=== PATIENT | male | born 1975 | race Caucasian/White ===

== ENCOUNTER 2016-10-11 17:45 | Emergency (ER) | payer OTHER ==
[~2016-10-11] VITALS: Ht 185.4 cm; Wt 68.9 kg
[~2016-10-11 17:45] MED LIST: DIAMOX500 MG IV; EYE DROPS; NOHOMEMEDS; NORCO 5/3251 TABLET PO; PHENERGAN12.5 M1 PO; [UNRECOGNIZED DRUG - OTHER]
[2016-10-11] MEDS ORDERED: NORCO 5/3251 TABLET PO (19:51)
[2016-10-11 19:58] VITALS: BP 125/74
== END 2016-10-11 20:01 | disposition home or self-care (01) ==
LOC: EME 17:45
DX: S06.0X0A Concussion without loss of consciousness, initial encounter (principal); W19.XXXA Unspecified fall, initial encounter; Y93.68 Activity, volleyball (beach) (court); H40.9 Unspecified glaucoma; H91.92 Unspecified hearing loss, left ear; Z97.4 Presence of external hearing-aid; F17.200 Nicotine dependence, unspecified, uncomplicated
CPT/HCPCS: 70450; 99281; 99283

== ENCOUNTER 2016-12-08 10:52 | Emergency (ER) | payer OTHER ==
[~2016-12-08] VITALS: Ht 193 cm; Wt 69.2 kg
[2016-12-08] MEDS ORDERED: ROBAXIN500 MG PO (13:48)
[2016-12-08] MEDS ORDERED: MOTRIN600 MG PO (13:48)
[2016-12-08 13:53] VITALS: BP 132/77
== END 2016-12-08 13:54 | disposition home or self-care (01) ==
LOC: EME 10:52
DX: S13.9XXA Sprain of joints and ligaments of unspecified parts of neck, initial encounter (principal); W20.8XXA Other cause of strike by thrown, projected or falling object, initial encounter; Y93.89 Activity, other specified; F17.200 Nicotine dependence, unspecified, uncomplicated
CPT/HCPCS: 72040; 99281; 99284

== ENCOUNTER 2017-05-29 10:45 | Emergency (ER) | payer OTHER ==
[~2017-05-29] VITALS: Ht 182.9 cm; Wt 68.2 kg
[~2017-05-29 10:45] MED LIST changes: +MOTRIN600 MG PO; +ROBAXIN500 MG PO
[2017-05-29 11:34] LABS: HEMATOCRIT 41.5 % (38.0-50.0); HEMOGLOBIN 14.4 G/DL (12.5-16.6); MCH 32.1 PG (29.0-34.0); MCHC 34.7 G/DL (30.0-36.0); MCV 92.4 FL (86-99); PLATELET COUNT 193 K/uL (156-360); RBC DIS.WIDTH-CV 12.1 % (11.8-14.6); RBC DIS.WIDTH-SD 41.8 % (39-53); RED BLOOD COUNT 4.49 M/uL (4.00-5.50)
[2017-05-29 11:44] LABS: CHLORIDE 103 mEq/L (99-109); POTASSIUM 4.3 mEq/L (3.7-5.4); SODIUM 139 mEq/L (136-147)
[2017-05-29 11:46] LABS: GLUCOSE 77 mg/dL (70-99)
[2017-05-29 11:50] LABS: CREATININE 0.8 mg/dL (0.6-1.3); GFR ESTIMATE (CALCULATED) > 59 mL/min/ (58.99-99999)
[2017-05-29 11:51] LABS: UREA NITROGEN (BUN) 8 mg/dL (9-23)
[2017-05-29 11:57] LABS: TROP-I INTERPRETATION NEGATIVE; TROPONIN-I < 0.01 ng/mL (0.0-0.30)
[2017-05-29 14:14] LABS: TROP-I INTERPRETATION NEGATIVE; TROPONIN-I < 0.01 ng/mL (0.0-0.30)
[2017-05-29] MEDS ORDERED: MOTRIN800 MG PO (14:29)
[2017-05-29 14:42] VITALS: BP 117/77
== END 2017-05-29 14:44 | disposition home or self-care (01) ==
LOC: EME 10:45
PROVIDERS: Emergency Medicine
DX: R07.89 Other chest pain (principal); H40.9 Unspecified glaucoma; H91.92 Unspecified hearing loss, left ear; F17.200 Nicotine dependence, unspecified, uncomplicated; Z95.1 Presence of aortocoronary bypass graft; Z97.4 Presence of external hearing-aid; Z87.74 Personal history of (corrected) congenital malformations of heart and circulatory system
CPT/HCPCS: 71046; 80048; 84484; 85027; 93005; 99281; 99285